=== PATIENT | female | born 1975 | race Caucasian/White ===

== ENCOUNTER 2021-06-08 14:22 | Emergency (ER) | payer BC, SELFPAY ==
[2021-06-08 16:15] VITALS: BP 121/49; PULSE 95; RESP 20; TEMP 36.7; O2SAT 100; BMI 28.8
--- NOTE | 2021-06-08 16:24 | XR_ITS ---
PROCEDURE INFORMATION: Exam: XR Left Foot Exam date and time: 06/08/2021 4:24 PM Age: 46 years old Clinical indication: Injury or trauma; Other: Mashed left foot between boat and dock. ; Blunt trauma; Additional info: Pain TECHNIQUE: Imaging protocol: XR Left foot. Views: 3 or more views. COMPARISON: No relevant prior studies available. FINDINGS: Bones/joints: Osseous anatomic alignment is well preserved. No acutely displaced fracture or dislocation. Joint spaces are well preserved. Soft tissues: Soft tissue swelling at the dorsal aspect of the foot. IMPRESSION: 1. Swelling at the dorsal aspect of the foot. 2. Negative for acute skeletal pathology.
--- NOTE | 2021-06-08 16:41 | HMH.EDUTC ---
[facility] [place] Disposition Clinical Impression: Fracture of toe of left foot Qualifiers: Encounter type: initial encounter Toe: lesser toe Fracture type: closed Phalanx: middle Fracture alignment: nondisplaced Qualified Code(s): S92.525A - Nondisplaced fracture of middle phalanx of left lesser toe(s), initial encounter for closed fracture Disposition: Home, Self-Care Condition on Discharge: Good Instructions: DI for Toe Fracture Additional Instructions: non Weightbearing rest Ice with cold pack for 20 minutes remove may repeat for comfort every hour Elevate foot above your heart as much as possible to help reduce swelling and therefore pain Ibuprofen every 6 hours as needed for pain or inflammation. If needs something more you can take Tylenol every 4 hours as needed as long as her primary care has told he was okayed for you to take both. If improving any do not need to follow-up you can bring begin exercising 2-3 weeks after injury. Follow-up immediately if new or worsening symptoms or no noticeable improvement over the next 3-[address] Chilel tomorrow for appointment keep boot in place Referrals: Chel Ragsdale [Primary Care Provider] - Myesha Chilel DPM [Staff Physician] - Time of Disposition: 17:03 Medical Decision Making - [place] Inquiry Pt receiving controlled substance: No Vital Signs: 06/08/21 16:15 Temperature 98.1 F Temperature Source Temporal Artery Scan Pulse Rate [Right Brachial] 95 H Respiratory Rate 20 Blood Pressure [Right Arm] 121/49 L Blood Pressure Mean [Right Arm] 73 Blood Pressure Source [Right Arm] Automatic Cuff Blood Pressure Position [Right Arm] Sitting 02 Sat by Pulse Oximetry 100 Orders (Tests/Meds): ORDERS Category Date Time Status XR foot LT min 3V Stat Exams 06/08/21 16:24 Taken - Radiology Data #1 Image(s): Foot/Toes Image Reviewed: Yes I reviewed the patient's radiology image w/the ED provider Preliminary Findings: Abnormal poss fx 2nd and 3rd tars [facility] [place] HPI - General Chief complaint: Urgent Treatment Center Stated complaint: a/o left foot injury smashed Time Seen by Provider: 06/08/21 16:41 Mode of Arrival: Ambulatory Source of Information: Patient Limitations: No Limitations Description of Symptoms (Recalled from Triage Doc. by RN): PATIENT STATES HER LEFT FOOT WAS SMASHED BETWEEN PONTOON AND DOCK TODAY. SWELLING AND BRUISING NOTED HEENT Symptoms (Recalled from RN notes): No Resp Symptoms (Recalled from RN notes): No Skin Symptoms (Recalled from RN notes): No MS Symptoms (Recalled from RN notes): Yes Functional Status (Recalled from RN notes): WNL - History of Present Illness Provider Complaint: 46 yr old female presents for left foot pain and swelling. pt states she had her foot caught between the boat and dock earlier today. pt states she can resin remover her toes down but not up - Related Data Allergies Allergy/AdvReac Type Severity Reaction Status Date / Time codeine Allergy Verified 06/08/21 16:35 Penicillins Allergy Verified 06/08/21 16:35 - Worker's Comp Is this a Worker's Comp case?: No [facility] History - Hepatitis A Screen Drug use history?: No High risk sexual behaviors?: No History of sexually transmitted infection?: No Currently employed?: No Childcare worker?: No Do you have indoor plumbing?: Yes Do you have electricity?: Yes Attestation statement:: This patient has been screened for Hepatitis A risk factors. I have reviewed the patient's past medical history: Yes ROS Obtained: Yes Systems reviewed as appropriate & no additional complaints - Constitutional Constitutional: Reports system reviewed and no additional complaints, except as docu, Denies fatigue - Eyes Eyes: Reports system reviewed and no additional complaints, except as docu, Denies blurry vision - ENT Ears, Nose, Mouth, and Throat: Reports system reviewed and no additional complaints, except as docu, Denies bleeding gums - Cardiovascular Cardiovascular: R
[2021-06-08 17:16] VITALS: BP 121/49; PULSE 95; RESP 20; TEMP 36.7; O2SAT 100
== END 2021-06-08 17:26 | disposition home or self-care (01) ==
PROVIDERS: Emergency Provider Nurse Practitioner Family; PCP Family Medicine
DX: S92.525A Nondisplaced fracture of middle phalanx of left lesser toe(s), initial encounter for closed fracture (principal)
CPT/HCPCS: 73630; 99202; G0463

== ENCOUNTER 2024-01-18 07:43 | Outpatient (CLI) | payer BC, SELFPAY ==
[2024-01-18] VITALS (10 sets, daily range): BP systolic 96–125; BP diastolic 60–83; PULSE 60–91; RESP 16–18; O2SAT 99–100; BMI 26.4
--- NOTE | 2024-01-18 07:45 | CA_ITS ---
APPROVED REPORT EXAM: Comprehensive 2D, Doppler, and color-flow Echocardiogram Special Education Inclusion Teacher: Nini Garcia, KAREEN, RVS Ht: 5 ft 3 in Wt: 153lbs BSA: 1.73 BP: 106/67 mmHg Indications: cp, SVT, ABN EKG 2D Dimensions Left Atrium 2.45 cm LA Volume 38.40 mL LA Volume Index 21.70 mL/m2 (M/F) 16-34 M-Mode Dimensions RVDd 2.47 cm (0.9-2.6) LA Diam 2.57 cm (1.9-4.0) LVDd 3.82 cm (3.5-5.7) LVDs 2.85 cm (3.5-5.7) IVSd 0.69 cm (0.6-1.1) PWd 0.81 cm (0.6-1.1) EF (Teich) 53.70% EPSs 0.78 cm FS 27.30% EDV (Teich) 66.70 mL TAPSE 2.19 (<1.7) ESV (Teich) 30.90 mL LV Diastology E Decel Time 130 (160-240 msec) E/A Ratio 0.93 MED A' 7.60 cm/s LAT A' 9.90 cm/s Aortic Valve CHLOE Index 1.59 cm2/m2 AoV Peak Sae. 96.0 (50-130 cm/s) AO Peak GR. 3.70 mmHg AO Mean GR. 1.90 (<5 mmHg) AO VTI 17.0 (18-25 cm) CHLOE (VTI) 2.81 (2.5-4.5 cm2) Mitral Valve MV A Velocity 84.0 (40-130 cm/s) E/A Ratio 0.93 Pulmonary Valve PV Peak Velocity 57.0 (50-150 cm/s) Left Ventricle The left ventricle is normal size. The left ventricular systolic function is normal. The left ventricular ejection fraction is within the normal range. There is normal left ventricular wall thickness. There is normal LV segmental wall motion. The left ventricular diastolic function is normal. LVEF is 55%. Right Ventricle The right ventricle is normal size. The right ventricular systolic function is normal. Atria The left atrium size is normal. The right atrium size is normal. There is no Doppler evidence of interatrial shunt. Aortic Valve The aortic valve opens well. There is no aortic valvular stenosis. No aortic regurgitation is present. Mitral Valve The mitral valve is normal in structure. No evidence of mitral valve stenosis. There is no mitral valve regurgitation noted. Tricuspid Valve The tricuspid valve leaflets are thin and pliable. Trace tricuspid regurgitation. There is insufficient TR jet to estimate RVSP. Pulmonic Valve The pulmonary valve is normal in structure. Trace pulmonic regurgitation. Great Vessels The aortic root is normal in size. The ascending aorta is normal in size. IVC is normal in size and collapses >50% with inspiration. Pericardium There is no pericardial effusion. Other Information Study Quality: Fair Conclusion Normal biventricular systolic function. No significant valvular stenosis or regurgitation. Electronically signed by : Charlene Del Valle MD 01/19/2024 10:12:25
--- NOTE | 2024-01-18 08:24 | CT_ITS ---
APPROVED REPORT Sales Rep: CLINICAL INDICATION Chest Pain TECHNIQUE Image Acquisition: A 128 slice MDCT scanner ([employer] Vyua View) was used for data acquisition. A noncontrast coronary calcium scan was performed. A CT attenuation threshold of 130 Hounsfield units (HU) was used for the detection of calcium in contiguous voxels of 1 sq mm in area to be counted as individual lesions. Bolus tracking in the ascending aorta with a threshold of 180 HU was performed. Immediately afterwards, ECG synchronized cardiac CT was then performed from the cardiac base to apex using retrospective gating with ECG tube current modulation. A total of 85 mL of Isovue 370 mg/mL contrast medium was administered at 5 mL/sec followed by a saline flush using a biphasic injection protocol. A tube voltage of 120 KVp was used. The average heart rate at the time of acquisition was 64 bpm and regular. Image Reconstruction Transaxial images were reconstructed at 0.67 mm slide thickness. Data was reviewed interactively on an advanced workstation capable of 2 and 3-dimensional displays in all conventional reconstruction formats, including multiplanar reformations, maximum intensity projections, curved multiplanar reformations, and volume rendered reconstructions. When applicable, selected routine images describing the relevant coronary anatomy and pathology were saved and sent to PACS. Complications None Technical Quality Overall image quality was good. Coronary artery opacification was adequate. Total DLP (Dose-Length Product) is 1238.0 mGy-cm. The reported value represents the total of one or more individual components during the CT acquisition of this date and at this time, and as such, the same value may appear in more than one CT report depending on the interpreting/reporting physicians. COMPARISON None FINDINGS CT Coronary Calcium Scoring LMA (Left Main Artery) = 0 LAD (Left Anterior Descending) = 0 LCX (Left Coronary Circumflex) = 0 RCA (Right Coronary Artery) = 0 Total Calcium Score = 0 using the AJ-130 method. The interpretation of the calcium heart score is based on the following continuum*: 0 = no calcified plaque detected (risk of coronary artery disease is very low ??? less than 5%) 1-10 = calcium detected in extremely minimal levels (risk of coronary diseases is still low ??? less than 10%) 11-100 = mild levels of plaque detected with certainty (mild or minimal narrowing of heart arteries is likely) 101-400 = definite,at least moderate levels of plaque detected (relatively high risk of a heart attack within 3-5 years) >401-999 = extensive levels of plaque detected (high risk of heart attack, high levels of vascular disease are present, high likelihood of at least one significant coronary narrowing) *The calcium heart score quantifies the burden of coronary calcification/plaque in the coronary arteries. The calcium heart score is not able to evaluate the presence or burden of non-calcified (i.e. soft) plaque. There is no identifiable calcification in the aortic valve, mitral annulus or mitral valve, pericardium, or myocardium. Coronary CT Angiography The coronary arterial system is right dominant. Quantitative Stenosis Grading: Left Main (LM): The left main originates normally from the left sinus of Valsalva. The LM bifurcates into the left anterior descending artery and left circumflex artery. The LM is patent with no evidence of atherosclerosis. Left Anterior Descending (LAD) and Diagonal Branches: The LAD gives off 4 diagonal branches. The LAD and its branches are patent with no evidence of atherosclerosis. There is no evidence of LAD-myocardial bridge. Left Circumflex (LCX) and Obtuse Marginals (OM): The LCX gives off 1 Obtuse Marginal (OM) branch. The LCX and its branches are patent with no evidence of atherosclerosis. Right Coronary Artery (RCA): The RCA originates normally from the right sinus of Valsalva. The RCA gives off a posterior descending artery (PDA) and posterolateral (PL) branches. The RCA and its branches are patent with no evidence of atherosclerosis. Non-Coronary Cardiac Findings: Analysis of the left ventricular (LV) structure and function was performed after 3-D reconstruction of the LV from axial images, with user-corrected automatic contouring for assessment of LV volumes and user-defined reconstruction from oblique planes for measurement of 3-D cardiac structure and function. -The left ventricle systolic function is normal. -There is no left atrial appendage filling defect. Two right pulmonary veins and two left pulmonary veins drain normally into the left atrium. -No pericardial thickening or calcification. -Central and branch pulmonary arteries in the [id number] are unremarkable. -Thoracic aorta within the visualized thoracic aortic-branches in the [id number] is unremarkable. Extracardiac Structures No significant extra-cardiac findings. Note, however, that this study is focused on the cardiac findings. IMPRESSION -No coronary calcification with an Agatston score = 0 using the AJ-130 method. -No evidence of significant flow-limiting atherosclerosis of the coronary arteries. -No evidence of coronary anomalies or myocardial bridges. -CAD-RADS 0. Management recommendations per ACC/AHA guidelines*, as clinically appropriate. *Recommendations: CAD RADS 0: Reassurance. Consider non-atherosclerotic causes of chest pain. CAD RADS 1: Consider non-atherosclerotic causes of chest pain. Consider preventive therapy and risk factor modification. CAD RADS 2: Consider non-atherosclerotic causes of chest pain. Consider preventive therapy and risk factor modification, particularly for patients with nonobstructive plaque in multiple segments. CAD RADS 3: Consider further functional testing. Consider symptom-guided anti-ischemic and preventive pharmacotherapy as well as risk factor modification per published guideline statements. CAD RADS 4A: Consider further functional testing or invasive coronary angiography with revascularization per published guideline statements. Consider symptom-guided anti-ischemic and preventive pharmacotherapy as well as risk factor modification per published guideline statements. CAD RADS 4B: Invasive coronary angiography recommended with revascularization per published guideline statements. Consider symptom-guided anti-ischemic and preventive pharmacotherapy as well as risk factor modification per published guideline statements. CAD RADS 5: Consider invasive angiography and/or viability assessment with revascularization per published guideline statements. Consider symptom-guided anti-ischemic and preventive pharmacotherapy as well as risk factor modification per published guideline statements. CRITICAL RESULT None COMMUNICATION Per this written report The coronary and cardiac findings of this CCTA were reviewed, reported, and signed by Asif Del Valle MD (Network Security Architect) Conclusion Electronically signed by : Charlene Del Valle MD 01/19/2024 14:05:37
[2024-01-18] MEDS: IVABRADINE HCL 7.5MG TABLET *IVABRADINE+METOPROLOL REGIMINE 15 MG PO (09:10)
[2024-01-18] MEDS: METOPROLOL TARTRATE 50MG TABLET *IVABRADINE+METOPROLOL REGIMINE 50 MG PO ×2 (09:10→09:56)
[2024-01-18] MEDS: METOPROLOL TARTRATE 25MG TABLET *IVABRADINE+METOPROLOL REGIMINE 25 MG PO ×2 (09:10→09:56)
[2024-01-18 09:30] LABS: Chloride 104 mmol/L (98-107)
[2024-01-18 09:31] LABS: Potassium 4.3 mmoL/L (3.5-5.1); Sodium 138 mmol/L (136-145)
[2024-01-18 09:34] LABS: Anion Gap 9.3 mEq/L (5-15); Blood Urea Nitrogen 13 mg/dl (7-17); Calcium 9.6 mg/dl (8.4-10.2); Carbon Dioxide 29 mmol/L (22.0-30.0); Creatinine Clearance Estimated 121 mL/min (50-200); Estimated Glomerular Filt Rate 106 ml/min (>60); GFR (African American) 129 ML/MIN (>60); Glucose 85 mg/dl (74-100)
[2024-01-18 10:36] LABS: HCG Qualitative, Serum Negative (Negative)
[2024-01-18] MEDS: METOPROLOL TARTRATE 5MG/5ML VIAL *IVABRADINE+METOPROLOL REGIMINE 5 MG IV ×3 (10:53→11:17)
[2024-01-18] MEDS: NITROGLYCERIN 0.4MG SL TABLET 0.800000000000000044 MG SL (11:03)
[2024-01-18] MEDS: 0.9 % SODIUM CHLORIDE 50 ML VIAL IV (13:56)
[2024-01-18] MEDS: IOPAMIDOL-370 (76%);100ML BOTTLE 85 ML IV (13:57)
[2024-01-18] MEDS: SODIUM CHLORIDE 0.9% 10ML SYR (RAD ONLY) 10 ML IV (13:57)
== END 2024-01-18 12:17 | disposition home or self-care (01) ==
LOC: RT 07:50 → RAD 09:04
PROVIDERS: Visit Provider Physician Assistant
DX: R06.09 Other forms of dyspnea (principal); I20.89 Other forms of angina pectoris; R00.2 Palpitations; R94.31 Abnormal electrocardiogram [ECG] [EKG]
CPT/HCPCS: 75571; 75574; 80048; 84703; 93306; Q9967

== ENCOUNTER 2024-07-03 07:27 | Day surgery (SDC) | payer BC, SELFPAY ==
[2024-06-23 13:11] VITALS: BMI 25.3
--- NOTE | 2024-07-03 07:48 | P.PNANES_ITS ---
[facility] Disclaimer: The information contained in this section may have been updated after the patient was seen, as this information can be updated by other users. Medical History Urinary tract infection Irritable bowel syndrome (IBS) History of gastroesophageal reflux (GERD) Constipation Elevated troponin level Dyspnea on exertion Typical angina Palpitations Abnormal ECG Anxiety Seasonal allergies Tachycardia Surgical History History of endometrial ablation History of knee surgery History of bilateral breast reduction surgery Hx of cholecystectomy Family History Mother Cancer, Onset Age: 59 Grandmother Kidney disease Cancer Grandfather Cancer Father Heart attack Kidney disease Family/Other Kidney disease Social History Smoking Status: Never smoker alcohol intake: never substance use type: denies use current occupational status: employed Travel in the last 8 weeks: None adopted: No caregiver/support person: No foster care: No lives independently: Yes service: No caffeine: Yes do you feel safe at home: Yes victim of physical abuse: No victim of emotional abuse: No victim of sexual abuse: No would you like helpful sources: No [facility] Anesthesia Checklist Patient Identification Patient Identification: Arm Band Structural Data Admitted From: Home Planned Operative Procedure/s: EGD Consent for Planned Operative Procedure(s) Verified: Yes Verified Documents: Surgical Consent and History and Physical NPO Status Verified Time NPO: 00:00 Chart Verification Results Verified: HCG Additional verifications Anesthesia Reactions: No Hx Blood Transfusions: No Blood Transfusion Reaction: No Airway Assessment Mallampati Score:: Class II C-Spine Mobility Assessed: Yes TMJ Mobility Assessed: Yes Dentition: Good Dentition (Permanent retainer) Neurological Assessment Level of Consciousness: Awake Hx Seizures: No Numbness or tingling in extremities: No Anesthesia Plan Anesthesia Risk discussed: Yes Anesthesia Plan: Verified ASA Class: II Anesthesia Type: MAC
[2024-07-03 07:49] LABS: Urine Pregnancy, HCG Qual. Negative (Negative)
[2024-07-03] MEDS: LACTATED RINGERS 1000ML 1,000 ML 25 ML IV (07:49)
--- NOTE | 2024-07-03 07:49 | HMH.PROCNOTE ---
[facility] Procedure Note Date: 07/03/24 Time: 08:33 Procedure Note:: Upper Endoscopy Procedure Report: Esophagogastroduodenoscopy with cold biopsies Endoscopost: Jared Wilkes II, MD Referring Physician: Tay Celeste Date of Procedure: July 03, 2024 Equipment: Olympus GIF 190 standard upper endoscope Sedation: MAC sedation Indications: Mrs. Weeks is a 49-year-old female who is here for upper endoscopy secondary to chronic GERD. She has had acid reflux since she was a teenager. She does state that this is fully controlled with omeprazole 40 mg p.o. daily. She does get some nocturnal supine reflux but also gets reflux with sitting up. She reports no dyspepsia, epigastric abdominal pain or dysphagia. The patient does get some occasional bloating and some belching. She reports constipation which is fairly well-controlled with MiraLAX. She previously had abdominal pain/dyspepsia but this resolved with cholecystectomy. This is her first upper endoscopy. Her grandmother had symptoms of reflux but she reports no family history of esophageal or gastric cancer. Procedure: Prior to the procedure, a history and physical exam was performed, and patient's medications and allergies were reviewed. The risks, benefits and alternatives of the sedation and procedure were discussed with the patient. All questions were answered and informed consent was obtained. The patient was brought to the procedure room. Patient identification and proposed procedure were verified by the physician and the nurse. The patient was placed in a left lateral decubitus position and the scope was passed under direct vision. Throughout the procedure, the patient's blood pressure, pulse, and oxygen saturations were monitored continuously. The upper GI endoscopy was accomplished without difficulty. The patient tolerated the procedure well. Findings: The scope was passed directly into the upper esophagus and advanced to the third portion of the duodenum. The post bulbar duodenum and duodenal bulb were normal with normal mucosa and conniventes. The scope was withdrawn through a normal duodenal bulb and pylorus into the stomach. There was some mild bile reflux with minimal linear reactive gastropathy of the prepyloric antrum. There was also some fat emulsion and retained minor residue within the stomach suggestive of mild gastric dysmotility. Cold biopsies were taken from the antrum. There were a few gastric fundic polyps in the body and fundus 1 of which was removed via cold biopsy. The remainder of the antrum, body and fundus of the stomach were grossly normal. Upon retroflexion there was a very small 1 to 2 cm hiatal hernia. 2 biopsies were taken in the antrum and along the lesser curvature for histology to rule out gastritis and/or H pylori. The scope was then withdrawn into the esophagus. There was no evidence of reflux esophagitis or Medina's. There was a serrated Z-line indicative of nonerosive GERD. Biopsies were taken from the GE junction to rule out reflux or intestinal metaplasia. There were tertiary contractions and evidence of mild esophageal dysmotility. The remainder of the esophageal mucosa was normal. Impression: 1. Mild reactive gastropathy 2. Gastric fundic polyps 3. Mild gastric dysmotility 4. Nonerosive GERD with small 1 to 2 cm hiatal hernia Plan: I will discuss the findings with the patient and family. She does have control of her GERD with omeprazole. I would continue this as maintenance therapy. We will discuss additional treatment options and I will follow-up the biopsies.
[2024-07-03 07:50] VITALS: BP 117/71; PULSE 105; RESP 18; TEMP 36.3; O2SAT 98
[2024-07-03 08:15] VITALS: O2SAT 98
[2024-07-03 08:35] VITALS: BP 121/72; PULSE 95; RESP 18; TEMP 36.6; O2SAT 95
[2024-07-03 08:45] VITALS: BP 106/69; PULSE 97; RESP 20; O2SAT 96
[2024-07-03 08:55] VITALS: BP 106/69; PULSE 97; RESP 20; O2SAT 96
[2024-07-03 09:30] VITALS: BP 114/74; PULSE 96; RESP 18; O2SAT 98
== END 2024-07-03 09:30 | disposition home or self-care (01) ==
PROVIDERS: Visit Provider Internal Medicine Gastroenterology
PROC: 0DJ08ZZ Inspection of Upper Intestinal Tract, Via Natural or Artificial Opening Endoscopic (ICD-10-PCS; CPT 43235; principal; 2024-07-03 08:30)
DX: K21.9 Gastro-esophageal reflux disease without esophagitis (principal); K44.9 Diaphragmatic hernia without obstruction or gangrene; K31.7 Polyp of stomach and duodenum; K31.9 Disease of stomach and duodenum, unspecified
CPT/HCPCS: 43239; 81025; J7120